=== PATIENT | female | born 1980 ===

== ENCOUNTER 2017-05-10 00:07 | Emergency (ER) | payer OTHER ==
[2017-05-10 00:17] VITALS: RESP 16; O2SAT 96
[2017-05-10] MEDS ORDERED: NS 1,000 ML IV ONE ×2 (00:23→01:31)
--- NOTE | 2017-05-10 00:23 | EDPHY ---
H & P Stated Complaint: RLQ abd pain, dizziness, nausea x 1 week. Time Seen by Provider: 05/10/17 00:15 HPI/ROS: HPI CHIEF COMPLAINT: Abdominal pain, lightheadedness, nausea HISTORY OF PRESENT ILLNESS: Patient otherwise healthy 36-year-old female with no significant medical history she does not take any daily medications she presents emergency room with abdominal pain x1 week. She states that she has had intermittent low abdominal pain described as sharp stabbing. Also some low back pain. Now she describes pain in her right lower quadrant. She states that she went to a [facility] saw her primary care doctor on Thursday she thinks and had blood work and urinalysis done there was some blood in her urine and urine culture sent but she was not started on any antibiotics. She denies any dysuria. She states her abdominal pain back pain have improved but she has been having some lightheadedness. Sensation of feeling like she is going to pass out. She denies any chest pain or shortness of breath denies pleuritic pain, denies palpitations. Denies fever. She does report to me that she had some vaginal bleeding that was abnormal on Thursday however this is since subsided. She thinks she had 2 days of vaginal bleeding. Past Medical History: No significant medical history Past Surgical History: No significant surgical history Social History: Denies drugs alcohol tobacco. Family History: Noncontributory ROS REVIEW OF SYSTEMS: A comprehensive 10 point review of systems is otherwise negative aside from elements mentioned in the history of present illness. Exam Constitutional appears well nontoxic no acute distress, normal vital signs, triage nursing summary reviewed, vital signs reviewed, awake/alert. Eyes normal conjunctivae and sclera, EOMI, PERRLA. HENT normal inspection, atraumatic, moist mucus membranes, no epistaxis, neck supple/ no meningismus, no raccoon eyes. Respiratory clear to auscultation bilaterally, normal breath sounds, no respiratory distress, no wheezing. Cardiovascular rate normal, regular rhythm, no murmur, no edema, distal pulses normal. Gastrointestinal tender palpation right lower quadrant, no rebound, no guarding, normal bowel sounds, no distension, no pulsatile mass. Genitourinary no CVA tenderness. Musculoskeletal no midline vertebral tenderness, full range of motion, no calf swelling, no tenderness of extremities, no meningismus, good pulses, neurovascularly intact. Skin pink, warm, & dry, no rash, skin atraumatic. Neurologic awake, alert and oriented x 3, AAOx3, moves all 4 extremities equally, motor intact, sensory intact, CN II-XII intact, normal cerebellar, normal vision, normal speech. Psychiatric normal mood/affect. Heme/Lymph/Immune no lymphadenopathy. Differential diagnosis includes but is not limited to and in no particular order : Bowel obstruction, appendicitis, gallbladder disease, diverticulitis, colitis , enteritis, perforated viscus, gastritis, GERD, esophagitis, urinary tract infection, pyelonephritis, kidney stones, dysfunction or bleeding, , ectopic Medical Decision Making: Plan for this patient IV establishment with EKG, IV fluid bolus 1 L, check basic blood work, CT scan abdomen pelvis with IV contrast rule out acute appendicitis, and re-evaluate. Re-evaluation: EKG interpretation by me on record in [employer] system. Impression time of EKG 0042, sinus rhythm rate of [address] elevation or ST depression or significant T-wave abnormalities. No prolonged intervals. Unremarkable EKG. CT scan abdomen pelvis with IV contrast negative for acute appendicitis. Some follicular cyst right ovary. No free fluid. Constipation present. Called to me by Dr. Shultz. [id number]: Re-examination at this time this patient is resting comfortably abdomen remained soft nontender. She is not vomiting. She feels well. Vital signs have been stable. Blood work is unremarkable her CT scan shows constipation and some follicular cyst on the right ovary. I will allow her to go home she appears well nontoxic she did not have any dizziness or chest pain or shortness of breath. She is agreeable this plan. She understands follow-up with her primary care doctor. I would still recommend she gets her ultrasounds performed. Abdomen is soft at this time. Comfortable discharge planning. Recommend MiraLax for constipation. Return precautions discussed. Source: Patient - Personal History LMP (Females 10-55): 22-28 Days Ago Current Tetanus/Diphtheria Vaccine: Yes Current Tetanus Diphtheria and Acellular Pertussis (TDAP): Yes - Medical/Surgical History Hx Asthma: No Hx Chronic Respiratory Disease: No Hx Diabetes: No Hx Cardiac Disease: No Hx Renal Disease: No Hx Cirrhosis: No Hx Alcoholism: No Hx HIV/AIDS: No Hx Splenectomy or Spleen Trauma: No Other PMH: . - Social History Smoking Status: Never smoked Constitutional: Initial Vital Signs Temperature (C) 36.6 C 05/10/17 00:13 Heart Rate 81 05/10/17 00:13 Respiratory Rate 16 05/10/17 00:13 Blood Pressure 126/75 H 05/10/17 00:13 O2 Sat (%) 96 05/10/17 00:13 O2 Delivery Mode Room Air Allergies/Adverse Reactions: Sulfa (Sulfonamide Antibiotics) Allergy (Verified 05/10/17 00:17) Home Medications: Medication Instructions Recorded NK [No Known Home Meds] 05/10/17 Medical Decision Making - Data Points Laboratory Results: Laboratory Results 05/10/17 00:36 05/10/17 00:36 05/10/17 05/10/17 05/10/17 01:50 00:36 00:36 WBC RBC Hgb Hct MCV MCH MCHC RDW Plt Count MPV Neut % (Auto) Lymph % (Auto) Rock % (Auto) Eos % (Auto) Baso % (Auto) Nucleat RBC Rel Count Absolute Neuts (auto) Absolute Lymphs (auto) Absolute Monos (auto) Absolute Eos (auto) Absolute Basos (auto) Absolute Nucleated RBC Immature Gran % Immature Gran # PT INR APTT VBG Lactic Acid 1.5 mmol/L mmol/L (0.7-2.1) Sodium Potassium Chloride Carbon Dioxide Anion Gap BUN Creatinine Estimated GFR Glucose Calcium Total Bilirubin Conjugated Bilirubin Unconjugated Bilirubin AST ALT Alkaline Phosphatase Troponin I Total Protein Albumin Lipase Beta HCG, Qual NEGATIVE Urine Color COLORLESS Urine Appearance CLEAR Urine pH 7.0 (5.0-7.5) Ur Specific [place] 1.023 (1.002-1.030) Urine Protein NEGATIVE (NEGATIVE) Urine Ketones NEGATIVE (NEGATIVE) Urine Blood NEGATIVE (NEGATIVE) Urine Nitrate NEGATIVE (NEGATIVE) Urine Bilirubin NEGATIVE (NEGATIVE) Urine Urobilinogen NEGATIVE EU EU (0.2-1.0) Ur Leukocyte Esterase NEGATIVE (NEGATIVE) Urine Glucose NEGATIVE (NEGATIVE) 05/10/17 05/10/17 05/10/17 00:36 00:36 00:36 WBC 7.86 10^3/uL 10^3/uL (3.80-9.50) RBC 5.10 10^6/uL 10^6/uL (4.18-5.33) Hgb 15.3 g/dL g/dL (12.6-16.3) Hct 43.9 % % (38.0-47.0) MCV 86.1 fL fL (81.5-99.8) MCH 30.0 pg pg (27.9-34.1) MCHC 34.9 g/dL g/dL (32.4-36.7) RDW 12.2 % % (11.5-15.2) Plt Count 269 10^3/uL 10^3/uL (150-400) MPV 9.1 fL fL (8.7-11.7) Neut % (Auto) 56.5 % % (39.3-74.2) Lymph % (Auto) 34.7 % % (15.0-45.0) Rock % (Auto) 6.1 % % (4.5-13.0) Eos % (Auto) 1.9 % % (0.6-7.6) Baso % (Auto) 0.5 % % (0.3-1.7) Nucleat RBC Rel Count 0.0 % % (0.0-0.2) Absolute Neuts (auto) 4.44 10^3/uL 10^3/uL (1.70-6.50) Absolute Lymphs (auto) 2.73 10^3/uL 10^3/uL (1.00-3.00) Absolute Monos (auto) 0.48 10^3/uL 10^3/uL (0.30-0.80) Absolute Eos (auto) 0.15 10^3/uL 10^3/uL (0.03-0.40) Absolute Basos (auto) 0.04 10^3/uL 10^3/uL (0.02-0.10) Absolute Nucleated RBC 0.00 10^3/uL 10^3/uL (0-0.01) Immature Gran % 0.3 % % (0.0-1.1) Immature Gran # 0.02 10^3/uL 10^3/uL (0.00-0.10) PT 12.7 SEC SEC (12.0-15.0) INR 0.93 (0.83-1.16) APTT 32.7 SEC SEC (23.0-38.0) VBG Lactic Acid Sodium 143 mEq/L mEq/L (135-145) Potassium 3.5 mEq/L mEq/L (3.5-5.2) Chloride 104 mEq/L mEq/L (97-110) Carbon Dioxide 26 mEq/l mEq/l (22-31) Anion Gap 13 mEq/L mEq/L (8-16) BUN 9 mg/dL mg/dL (7-23) Creatinine 0.6 mg/dL mg/dL (0.6-1.0) Estimated GFR > 60 Glucose 96 mg/dL mg/dL (70-100) Calcium 9.3 mg/dL mg/dL (8.5-10.4) Total Bilirubin 0.4 mg/dL mg/dL (0.1-1.4) Conjugated Bilirubin 0.2 mg/dL mg/dL (0.0-0.5) Unconjugated Bilirubin 0.2 mg/dL mg/dL (0.0-1.1) AST 22 IU/L IU/L (14-46) ALT 43 IU/L IU/L (9-52) Alkaline Phosphatase 64 IU/L IU/L (38-126) Troponin I < 0.012 ng/mL ng/mL (0.000-0.034) Total Protein 8.2 g/dL g/dL (6.3-8.2) Albumin 4.8 g/dL g/dL (3.5-5.0) Lipase 206 IU/L IU/L (23-300) Beta HCG, Qual Urine Color Urine Appearance Urine pH Ur Specific [place] Urine Protein Urine Ketones Urine Blood Urine Nitrate Urine Bilirubin Urine Urobilinogen Ur Leukocyte Esterase Urine Glucose Medications Given: Discontinued Medications Sodium Chloride (Ns) 1,000 mls @ 0 mls/hr IV EDNOW ONE; Wide Open PRN Reason: Protocol Stop: 05/10/17 00:24 Last Admin: 05/10/17 00:34 Dose: 1,000 mls Sodium Chloride (Ns) 1,000 mls @ 0 mls/hr IV ONCE ONE PRN Reason: Wide Open Stop: 05/10/17 01:32 Last Admin: 05/10/17 01:49 Dose: Not Given Departure - Departure Disposition: Home, Routine, Self-Care Clinical Impression: Abdominal pain Qualifiers: Abdominal location: generalized Qualified Code(s): R10.84 - Generalized abdominal pain Condition: Good Instructions: Acute Abdominal Pain (ED) Additional Instructions: 1. Return emergency room if develops worsening abdominal pain fever vomiting. 2. Stay well-hydrated. Drink lots of fluids. 3. I recommend you get some MiraLax over the counter for stool. 4. Return if worsening symptoms 5. Follow up with her primary care doctor. Referrals: NONE *PRIMARY CARE P,. [Primary Care Provider] - As per Instructions
[2017-05-10 00:43] LABS: PLATELET COUNT 269 10^3/uL (150-400)
--- NOTE | 2017-05-10 00:44 | CPEKG ---
Heart Rate: 73 RR Interval: 822 P-R Interval: 164 QRSD Interval: 98 QT Interval: 408 QTC Interval: 450 P [place]: 24 QRS [place]: -1 T Wave [place]: 52 EKG Severity - NORMAL ECG - EKG Impression: SINUS RHYTHM Electronically Signed By: Angel Cui 10-May-2017 20:35:13
[2017-05-10] MEDS ORDERED: IOPAMIDOL (ISOVUE-300) 100 ML BTL ONE (00:53)
[2017-05-10 00:57] LABS: INR 0.93 (0.83-1.16); PROTIME(PATIENT) 12.7 SEC (12.0-15.0)
[2017-05-10 02:05] VITALS: BP 123/80; PULSE 80; TEMP 97.5
== END 2017-05-10 02:11 | disposition home or self-care (01) ==
DX: R10.84 Generalized abdominal pain (principal); E86.9 Volume depletion, unspecified
CPT/HCPCS: Q9967